=== PATIENT | female | born 1955 | race Caucasian/White ===

== ENCOUNTER → 2016-05-18 | Outpatient (CLI) | payer OTHER ==
[~2016-05-18] MED LIST: ALLE25CA; CALCIUM CITRATE; CELE50CA; ESTRACE; FURO20TA2; LUTEIN; MULTIVIT; MULTIVITAMIN; PROZ20CA; VITAMIN D50000 UNT; [UNRECOGNIZED DRUG - OTHER]
--- NOTE | 2016-05-18 10:48 | REPMRS ---
Patient History The patient states she had a clinical breast exam in No known family history of cancer. Benign excisional biopsy of the left breast, 1997. Took unspecified hormones for 7 months. Digital Woman Screen Mammo: May 18, 2016 - Exam #: [id number] Bilateral CC and MLO view(s) were taken. Technologist: Ita Crowley, Technologist Prior study comparison: February 02, 2015, digital woman screen mammo performed at [facility]. January 15, 2014, digital woman screen mammo performed at [facility]. July 23, 2012, digital woman screen mammo performed at [facility]. FINDINGS: There are scattered fibroglandular densities. There has been no change in the appearance of the mammogram from the prior studies. There is a mild amount of scattered fibroglandular density which is fairly symmetric. There is no interval development of dominant mass, architectural distortion, or clustered microcalcification suggestive of malignancy. ASSESSMENT: BI-RADS/ACR category 1 mammogram. Negative. Recommendation Routine screening mammogram in 1 year (for women over age 40). This mammogram was interpreted with the aid of an FDA-approved computer-aided dectection system. Electronically Signed By: Eric Martinez MD 05/18/16 3072
== END ==
LOC: M WHC 08:37
PROVIDERS: ATTEND Family Medicine
DX: Z12.31 Encounter for screening mammogram for malignant neoplasm of breast (principal)

== ENCOUNTER → 2016-06-28 | Outpatient (REF) | payer OTHER ==
[2016-06-28 16:36] LABS: MEAN CORPUSCULAR HEMOGLOBIN 28.9 pg (27.0-33.0); MEAN CORPUSCULAR VOLUME 87.5 fl (80.0-96.0); RED CELL DISTRIBUTION WIDTH 15.4 % (11.5-14.5); WHITE BLOOD COUNT 5.8 K/mm3 (4.0-10.0)
[2016-06-28 17:37] LABS: VITAMIN B12 LEVEL > 2000 PG/ML (247-911)
[2016-06-28 17:38] LABS: FOLATE > 24.0 NG/ML (>5.4)
[2016-06-28 17:44] LABS: ANION GAP 12 MEQ/L (8-16); BLOOD UREA NITROGEN 27 MG/DL (7-18); CALCIUM LEVEL 9.6 MG/DL (8.8-10.2); CARBON DIOXIDE LEVEL 31 MEQ/L (21-32); CHLORIDE LEVEL 82 MEQ/L (98-107); CREATININE FOR GFR 0.99 MG/DL (0.55-1.02); FERRITIN 42 NG/ML (8-252); GLOMERULAR FILTRATION RATE > 60.0 (>45); GLUCOSE, FASTING 105 MG/DL (80-110); POTASSIUM SERUM 4.2 MEQ/L (3.5-5.1); SODIUM LEVEL 125 MEQ/L (136-145)
== END ==
LOC: M SFHCCLAY 11:37
PROVIDERS: ATTEND Family Medicine
DX: R42 Dizziness and giddiness (principal)

== ENCOUNTER → 2017-03-08 | Outpatient (CLI) | payer OTHER ==
--- NOTE | 2017-03-08 14:15 | REP ---
THORACIC SPINE SERIES: THREE VIEWS. HISTORY: Injury in a fall 2 days ago, mid upper back pain. FINDINGS: There is a mild dextroconvex lower thoracic scoliotic curve. A levoconvex lumbar curve is seen. There is straightening of the normal thoracic kyphosis. Thoracic vertebral body heights are preserved. Pedicles and posterior elements are intact. There is diffuse degenerative disc disease. No fracture or collapse is seen. No paravertebral soft-tissue mass is noted. Swimmers lateral view shows degenerative disc disease in the cervical spine as well. IMPRESSION: No traumatic abnormality noted. Scoliosis and diffuse degenerative disc disease.
== END ==
LOC: M CLY 13:10
PROVIDERS: ATTEND Family Medicine
DX: M41.9 Scoliosis, unspecified (principal); M51.34 Other intervertebral disc degeneration, thoracic region

== ENCOUNTER → 2017-07-05 | Outpatient (CLI) | payer OTHER | LOC: M WHC 08:43 | DX: Z12.31 Encounter for screening mammogram for malignant neoplasm of breast (principal) ==

== ENCOUNTER → 2018-02-10 | Outpatient (REF) | payer OTHER ==
[2018-02-11 12:19] LABS: BASO % 0.7 % (0.0-1.0); EOS # 0.1 10^3/uL (0.0-0.50); EOS % 1.2 % (0.0-3.0); HEMATOCRIT 31.2 % (36.0-47.0); HEMOGLOBIN 10.2 g/dl (12.0-15.5); LYMPH # 1.3 10^3/uL (1.5-4.5); LYMPH % 22.1 % (24.0-44.0); MEAN CORPUSCULAR HEMOGLOBIN 35.3 pg (27.0-33.0); MEAN CORPUSCULAR HGB CONC 32.7 g/dl (32.0-36.5); MONO % 17.8 % (0.0-5.0); NEUTROPHILS # 3.3 10^3/uL (1.8-7.7); NEUTROPHILS % 57.2 % (36.0-66.0); PLATELET COUNT, AUTOMATED 295 10^3/uL (150-450); RED BLOOD COUNT 2.89 10^6/uL (4.00-5.40); RED CELL DISTRIBUTION WIDTH 22.5 % (11.5-14.5); WHITE BLOOD COUNT 5.8 10^3/uL (4.0-10.0)
[2018-02-11 12:34] LABS: ALBUMIN 2.8 GM/DL (3.2-5.2); ALBUMIN/GLOBULIN RATIO 0.72 (1.00-1.93); ALKALINE PHOSPHATASE 211 U/L (45-117); ALT/SGPT 54 U/L (12-78); ANION GAP 9 MEQ/L (8-16); AST/SGOT 86 U/L (7-37); BILIRUBIN,TOTAL 1.4 MG/DL (0.2-1.0); BLOOD UREA NITROGEN 13 MG/DL (7-18); CALCIUM LEVEL 8.5 MG/DL (8.8-10.2); CARBON DIOXIDE LEVEL 30 MEQ/L (21-32); CHLORIDE LEVEL 94 MEQ/L (98-107); CREATININE FOR GFR 1.03 MG/DL (0.55-1.30); GLUCOSE, FASTING 82 MG/DL (70-100); IRON (FE) 41 UG/DL (50-170); LIPASE 268 U/L (73-393); POTASSIUM SERUM 4.6 MEQ/L (3.5-5.1); SODIUM LEVEL 133 MEQ/L (136-145); TOTAL PROTEIN 6.7 GM/DL (6.4-8.2)
[2018-02-11 12:42] LABS: FOLATE > 24.0 NG/ML (>5.4); VITAMIN B12 LEVEL > 2000 PG/ML (247-911)
[2018-02-12 11:55] LABS: HEPATITIS C VIRUS ABY INDEX 0.1 INDEX (<0.8)
[2018-02-12 11:56] LABS: HEPATITIS B CORE ANTIBODY IGM NEGATIVE (NEGATIVE)
[2018-02-12 11:57] LABS: HEPATITIS A ANTIBODY IGM NEGATIVE (NEGATIVE)
[2018-02-12 14:07] LABS: HEPATITIS B SURFACE ANTIGEN NEGATIVE (NEGATIVE)
== END ==
LOC: M SFHCCLAY 13:51
DX: R94.5 Abnormal results of liver function studies (principal); D64.9 Anemia, unspecified
CPT/HCPCS: 82746

== ENCOUNTER → 2018-04-15 | Outpatient (REF) | payer OTHER ==
[2018-04-15 16:52] LABS: ALT/SGPT 36 U/L (12-78); BILIRUBIN,TOTAL 0.3 MG/DL (0.2-1.0); BLOOD UREA NITROGEN 14 MG/DL (7-18); CALCIUM LEVEL 9.6 MG/DL (8.8-10.2); CARBON DIOXIDE LEVEL 31 MEQ/L (21-32); CHLORIDE LEVEL 98 MEQ/L (98-107); CHOLESTEROL LEVEL 197 MG/DL (<200); CHOLESTEROL RISK RATIO 2.855 (<5); CREATININE FOR GFR 0.67 MG/DL (0.55-1.30); GLOMERULAR FILTRATION RATE > 60.0 (>45); GLUCOSE, FASTING 99 MG/DL (70-100); HDL CHOLESTEROL 69 MG/DL (>40); IRON (FE) 46 UG/DL (50-170); LDL CHOLESTEROL 112 MG/DL (<100); NON-HDL-C 128 MG/DL; POTASSIUM SERUM 4.4 MEQ/L (3.5-5.1); SODIUM LEVEL 136 MEQ/L (136-145); TRIGLYCERIDES LEVEL 79 MG/DL (<150)
[2018-04-15 18:16] LABS: BASO # 0.1 10^3/uL (0.0-0.2); BASO % 0.9 % (0.0-1.0); EOS # 0.2 10^3/uL (0.0-0.50); EOS % 3.2 % (0.0-3.0); HEMATOCRIT 37.4 % (36.0-47.0); HEMOGLOBIN 12.1 g/dl (12.0-15.5); LYMPH # 2.6 10^3/uL (1.5-4.5); LYMPH % 45.3 % (24.0-44.0); MEAN CORPUSCULAR HEMOGLOBIN 31.8 pg (27.0-33.0); MEAN CORPUSCULAR HGB CONC 32.4 g/dl (32.0-36.5); MEAN CORPUSCULAR VOLUME 98.2 fl (80.0-96.0); MONO # 0.5 10^3/uL (0.0-0.8); MONO % 8.4 % (0.0-5.0); NEUTROPHILS # 2.4 10^3/uL (1.8-7.7); PLATELET COUNT, AUTOMATED 218 10^3/uL (150-450); RED BLOOD COUNT 3.81 10^6/uL (4.00-5.40); WHITE BLOOD COUNT 5.7 10^3/uL (4.0-10.0)
== END ==
LOC: M SFHCCLAY 10:53
PROVIDERS: ATTEND Family Medicine
DX: D64.9 Anemia, unspecified (principal); E78.2 Mixed hyperlipidemia

== ENCOUNTER → 2018-04-15 | Outpatient (CLI) | payer OTHER ==
--- NOTE | 2018-04-15 11:35 | REP ---
Clinical: Right hip pain. Technique: Neutral and frog lateral views of the right hip. Comparison: 10/15/2011. Findings: The patient is status post right hip arthroplasty with normal appearance and positioning to the femoral and acetabular components. Underlying osteopenia and arthritic changes of the residual visualized pelvis and proximal femur remain stable. Impression: Evidence for prior hip replacement. Stable appearance to the residual osseous structures as compared to 2011 the. Electronically Signed by Oscar Castillo MD 04/15/2018 11:27 A
== END ==
LOC: M CLY 10:59
PROVIDERS: ATTEND Family Medicine
DX: M25.551 Pain in right hip (principal); Z96.641 Presence of right artificial hip joint

== ENCOUNTER → 2018-06-26 | Outpatient (CLI) | payer OTHER ==
--- NOTE | 2018-06-27 01:10 | REP ---
Clinical: Right shoulder pain. Technique: Internal rotation, external rotation, and Y view of the right shoulder. Findings: Age-related osteopenia appreciated. Cortical irregularity and subtle spurring at the acromioclavicular joint is appreciated along with subtle cortical irregularity along the ossified glenoid rim. Subacromial space is normal. No periarticular calcifications are identified. No acute fracture or dislocation noted. Impression: Osteopenia and mild arthritic degenerative changes.
== END ==
LOC: M CLY 14:47
PROVIDERS: ATTEND Nurse Practitioner Family
DX: M25.511 Pain in right shoulder (principal); M19.011 Primary osteoarthritis, right shoulder; M85.811 Other specified disorders of bone density and structure, right shoulder

== ENCOUNTER → 2018-12-22 | Outpatient (CLI) | payer OTHER ==
--- NOTE | 2018-12-22 11:37 | REPMRS ---
Patient History The patient states she had a clinical breast exam in 12/2018. No known family history of cancer. Benign excisional biopsy of the left breast, 1997. Took unspecified hormones for 7 months. 3D TOMOSYNTHESIS WAS PERFORMED. [facility]%. Digital Woman Screen Mammo: December 22, 2018 - Exam #: [id number] Bilateral CC and MLO view(s) were taken. Technologist: Yari Nicole, Technologist Prior study comparison: July 05, 2017, digital woman screen mammo performed at [facility]. May 18, 2016, digital woman screen mammo performed at [facility]. FINDINGS: There are scattered fibroglandular densities. There has been no change in the appearance of the mammogram from the prior studies. There is a mild amount of residual fibroglandular tissue which is fairly symmetric. There is no interval development of dominant mass, architectural distortion, or clustered microcalcification suggestive of malignancy. Assessment: BI-RADS/ACR category 1 mammogram. Negative Mammogram. Recommendation Routine screening mammogram in 1 year (for women over age 40). This mammogram was interpreted with the aid of an FDA-approved computer-aided dectection system. Electronically Signed By: Kvng Aguilar MD 12/22/18 [id number]
== END ==
LOC: M WHC 10:20
PROVIDERS: ATTEND Nurse Practitioner Women's Health
DX: Z12.31 Encounter for screening mammogram for malignant neoplasm of breast (principal)

== ENCOUNTER → 2019-03-30 | Outpatient (REF) | payer OTHER ==
[2019-03-30 16:49] LABS: BLOOD UREA NITROGEN 17 MG/DL (7-18); CALCIUM LEVEL 9.7 MG/DL (8.8-10.2); CARBON DIOXIDE LEVEL 26 MEQ/L (21-32); CHLORIDE LEVEL 100 MEQ/L (98-107); CHOLESTEROL LEVEL 191 MG/DL (<200); CHOLESTEROL RISK RATIO 1.854 (<5); CREATININE FOR GFR 0.72 MG/DL (0.55-1.30); GLOMERULAR FILTRATION RATE > 60.0 (>45); GLUCOSE, FASTING 111 MG/DL (70-100); HDL CHOLESTEROL 103 MG/DL (>40); LDL CHOLESTEROL 69 MG/DL (<100); NON-HDL-C 88 MG/DL; POTASSIUM SERUM 4.6 MEQ/L (3.5-5.1); SODIUM LEVEL 135 MEQ/L (136-145); TRIGLYCERIDES LEVEL 97 MG/DL (<150)
== END ==
LOC: M SFHCCLAY 11:06
PROVIDERS: ATTEND Family Medicine
DX: E78.2 Mixed hyperlipidemia (principal); I10 Essential (primary) hypertension

== ENCOUNTER → 2019-04-14 | Outpatient (REF) | payer OTHER ==
[2019-04-14 18:39] LABS: HEMATOCRIT 40.3 % (36.0-47.0); HEMOGLOBIN 13.1 g/dl (12.0-15.5); MEAN CORPUSCULAR HGB CONC 32.5 g/dl (32.0-36.5); MEAN CORPUSCULAR VOLUME 101.5 fl (80.0-96.0); PLATELET COUNT, AUTOMATED 203 10^3/uL (150-450); RED BLOOD COUNT 3.97 10^6/uL (4.00-5.40); WHITE BLOOD COUNT 5.5 10^3/uL (4.0-10.0)
[2019-04-14 18:40] LABS: ALBUMIN 3.9 GM/DL (3.2-5.2); ALT/SGPT 105 U/L (12-78); BILIRUBIN,TOTAL 0.7 MG/DL (0.2-1.0); BLOOD UREA NITROGEN 31 MG/DL (7-18); CALCIUM LEVEL 8.9 MG/DL (8.8-10.2); CARBON DIOXIDE LEVEL 30 MEQ/L (21-32); CHLORIDE LEVEL 100 MEQ/L (98-107); GLOMERULAR FILTRATION RATE > 60.0 (>45); GLUCOSE, FASTING 93 MG/DL (70-100); IRON (FE) 146 UG/DL (50-170); POTASSIUM SERUM 4.1 MEQ/L (3.5-5.1); SODIUM LEVEL 136 MEQ/L (136-145); TOTAL PROTEIN 7.3 GM/DL (6.4-8.2)
[2019-04-14 18:48] LABS: VITAMIN B12 LEVEL > 2000 PG/ML (247-911)
[2019-04-14 19:03] LABS: HEMOGLOBIN A1c 5.6 %
[2019-04-14 19:13] LABS: TOTAL 25(OH) VITAMIN D 39.2 NG/ML (30.0-100.0)
[2019-04-15 02:38] LABS: HEMATOCRIT 40.3 % (36.0-47.0)
== END ==
LOC: M SFHCCLAY 09:54
PROVIDERS: ATTEND Family Medicine
DX: Z98.84 Bariatric surgery status (principal); R73.01 Impaired fasting glucose

== ENCOUNTER → 2019-05-14 | Outpatient (CLI) | payer OTHER ==
--- NOTE | 2019-05-14 09:52 | REP ---
Left hip two views: There is no fracture or dislocation. There is mild joint space narrowing. There are no calcifications or foreign bodies. The Impression: Mild joint space narrowing compatible with mild osteoarthritis. If symptoms persist or worsen, consider MRI. Electronically Signed by Kvng Polanco MD 05/14/2019 09:42 A
== END ==
LOC: M CLY 09:22
PROVIDERS: ATTEND Family Medicine
DX: M25.552 Pain in left hip (principal)

== ENCOUNTER → 2019-10-08 | Outpatient (CLI) | payer OTHER | LOC: M CLY 11:46 | PROVIDERS: ATTEND Family Medicine | DX: R91.8 Other nonspecific abnormal finding of lung field (principal); R06.02 Shortness of breath; M41.9 Scoliosis, unspecified ==

== ENCOUNTER 2019-10-10 11:51 | Observation (INO) | payer OTHER ==
[2019-10-10] MEDS ORDERED: ONDANSETRON 4MG/2ML VIAL ONE (13:31)
[2019-10-10] MEDS ORDERED: LORazepam 2 MG/ML VIAL ONE (14:47)
[2019-10-10] MEDS ORDERED: OXAZEPAM 15 MG CAP ONE (17:11)
[2019-10-10] MEDS ORDERED: IPRATROPIUM 0.5MG/ALBUTEROL 2.5MG INH SOL UD 3ML (DUONEB) ONE (17:11)
[2019-10-10] MEDS ORDERED: ISOVUE-370 76% 100ML VIAL ONE (17:41)
[2019-10-10] MEDS ORDERED: LevoFLOXacin 750MG/150ML IV BAG (J1956 PER 250MG) ONE (19:29)
[2019-10-10] MEDS ORDERED: ACETAMINOPHEN 325 MG TAB ONE (20:55)
[2019-10-10] MEDS ORDERED: LORazepam 1 MG TAB ONE (22:43)
[2019-10-11] MEDS ORDERED: LORazepam 1 MG TAB ONE (01:35)
[2019-10-11] MEDS ORDERED: cefTRIAXone SOD 1GM VIAL (J0696 PER 250MG) ONE (07:56)
[2019-10-11] MEDS ORDERED: ENOXAPARIN 40MG/0.4ML SYRINGE (J1650 PER 10MG) ONE ×2 (08:40)
[2019-10-11] MEDS ORDERED: hydroCHLOROthiazide 12.5 MG CAPSULE ONE ×2 (08:40)
[2019-10-11] MEDS ORDERED: AZITHROMYCIN INJ 500MG VIAL (J0456 PER 500MG) ONE ×2 (08:40)
[2019-10-11] MEDS ORDERED: GABAPENTIN 400 MG CAP ONE ×4 (08:40→22:36)
[2019-10-11] MEDS ORDERED: LORazepam 2 MG TAB ONE ×3 (08:40→13:44)
[2019-10-11] MEDS ORDERED: ESCITALOPRAM OXALATE 10 MG TAB (LEXAPRO) ONE ×2 (08:40)
[2019-10-11] MEDS ORDERED: LOSARTAN 50MG TABLET ONE ×2 (08:40)
[2019-10-11] MEDS ORDERED: BACLOFEN 10 MG TAB ONE ×4 (08:40→22:36)
[2019-10-11] MEDS ORDERED: amLODIPine 10 MG TAB ONE (13:29)
[2019-10-11] MEDS ORDERED: LOPERAMIDE 2 MG CAPLET ONE (16:47)
[2019-10-11] MEDS ORDERED: traZODone 50 MG TAB ONE (22:36)
[2019-10-12] MEDS ORDERED: MVI -ADULT INJECTION 10ML VIAL ONE (02:00)
[2019-10-12] MEDS ORDERED: FOLIC ACID 1MG/0.2ML VIAL ONE (02:00)
[2019-10-12] MEDS ORDERED: SODIUM CHLORIDE 0.9% 1000ML ONE (02:00)
[2019-10-12] MEDS ORDERED: THIAMINE 200MG/2ML VIAL (J3411 PER 100MG) ONE (02:00)
[2019-10-12] MEDS ORDERED: ACETAMINOPHEN TAB 650MG DOSE (2X325MG) ONE (05:43)
[2019-10-12] MEDS ORDERED: LANSOPRAZOLE SUSPENSION 30 MG/10 ML ORAL SYRINGE (FIRST-LANSOPRAZOLE) ONE (09:00)
[2019-10-12] MEDS ORDERED: cefTRIAXone SOD 1GM VIAL (J0696 PER 250MG) ONE (09:05)
[2019-10-12] MEDS ORDERED: GABAPENTIN 400 MG CAP ONE ×2 (09:05→16:18)
[2019-10-12] MEDS ORDERED: BACLOFEN 10 MG TAB ONE ×3 (09:05→16:18)
[2019-10-12] MEDS ORDERED: amLODIPine 10 MG TAB ONE (09:05)
[2019-10-12] MEDS ORDERED: hydroCHLOROthiazide 12.5 MG CAPSULE ONE (09:05)
[2019-10-12] MEDS ORDERED: LOSARTAN 50MG TABLET ONE (09:06)
[2019-10-12] MEDS ORDERED: ENOXAPARIN 40MG/0.4ML SYRINGE (J1650 PER 10MG) ONE (09:06)
[2019-10-12] MEDS ORDERED: ESCITALOPRAM OXALATE 10 MG TAB (LEXAPRO) ONE (09:06)
[2019-10-12] MEDS ORDERED: AZITHROMYCIN INJ 500MG VIAL (J0456 PER 500MG) ONE (10:18)
[2019-10-12] MEDS ORDERED: LORazepam 2 MG TAB ONE ×2 (11:15→16:18)
[2019-10-12] MEDS ORDERED: [UNRECOGNIZED DRUG - REMARK] XX ONE (14:57)
[2019-11-06 11:37] LABS: INR 1.07; PROTHROMBIN TIME 14.1 SECONDS (11.8-14.0)
[2019-11-06 14:48] LABS: BASO # 0.1 10^3/uL (0.0-0.2); BASO % 2.1 % (0.0-1.0); EOS # 0.1 10^3/uL (0.0-0.5); EOS % 1.3 % (0.0-3.0); HEMATOCRIT 39.4 % (36.0-47.0); HEMOGLOBIN 13.2 g/dl (12.0-15.5); LYMPH # 1.1 10^3/uL (1.5-5.0); MEAN CORPUSCULAR HEMOGLOBIN 32.8 pg (27.0-33.0); MEAN CORPUSCULAR HGB CONC 33.5 g/dl (32.0-36.5); MEAN CORPUSCULAR VOLUME 97.8 fl (80.0-96.0); MONO # 0.2 10^3/uL (0.0-0.8); NEUTROPHILS # 2.4 10^3/uL (1.5-8.5); NEUTROPHILS % 62.3 % (36.0-66.0); PLATELET COUNT, AUTOMATED 216 10^3/uL (150-450); RED BLOOD COUNT 4.03 10^6/uL (4.00-5.40); WHITE BLOOD COUNT 3.8 10^3/uL (4.0-10.0)
[2019-11-06 17:28] LABS: BASO % 0.1 % (0.0-1.0); EOS % 0.1 % (0.0-3.0); HEMOGLOBIN 11.9 g/dl (12.0-15.5); LYMPH # 1.1 10^3/uL (1.5-5.0); LYMPH % 15.4 % (24.0-44.0); MONO # 0.7 10^3/uL (0.0-0.8); MONO % 9.6 % (0.0-5.0); NEUTROPHILS # 5.2 10^3/uL (1.5-8.5); NEUTROPHILS % 74.7 % (36.0-66.0); PLATELET COUNT, AUTOMATED 148 10^3/uL (150-450); RED BLOOD COUNT 3.61 10^6/uL (4.00-5.40)
[2019-11-17 07:49] LABS: ALT/SGPT 80 IU/L (0-32); BILIRUBIN,DIRECT 0.2 MG/DL (0.0-0.2); BILIRUBIN,TOTAL 0.3 MG/DL (0.2-1.0); BLOOD UREA NITROGEN 17 MG/DL (7-18); CALCIUM LEVEL 8.9 MG/DL (8.8-10.2); CARBON DIOXIDE LEVEL 19 mmol/L (20-29); CHLORIDE LEVEL 103 MEQ/L (98-107); CPK CREATINE PHOSPHOKINASE 94 U/L (26-192); CREATININE FOR GFR 0.64 MG/DL (0.55-1.30); GLOMERULAR FILTRATION RATE > 60.0 (>45); GLUCOSE, FASTING 84 MG/DL (70-100); MB/CK RELATIVE INDEX 2.12 (< OR =4); POTASSIUM SERUM 4.3 MEQ/L (3.5-5.1); SODIUM LEVEL 141 MEQ/L (136-145)
[2019-11-17 07:50] LABS: ALBUMIN 3.8 GM/DL (3.2-5.2); NT-PRO BNP 47 PG/ML (<125); TOTAL PROTEIN 7.1 GM/DL (6.4-8.2); TROPONIN I < 0.02 NG/ML (< 0.10)
[2019-11-17 08:02] LABS: ABG BASE EXCESS -7.4 (-2.0-2.0); ABG HCO3 17.4 MEQ/L (22.0-26.0); ABG O2 SATURATION 96.5 % (95.0-99.0); ABG PARTIAL PRESSURE CO2 33.5 mmHg (35.0-45.0); ABG PARTIAL PRESSURE O2 101.5 mmHg (75.0-100.0); ABG STANDARD HCO3 18.5 MEQ/L (22.0-26.0); ABG TOTAL CO2 18.5 MEQ/L (23.0-31.0); ABG pH (ARTERIAL) 7.334 UNITS (7.350-7.450)
[2019-11-18 15:07] LABS: HEMATOCRIT 39.2 % (36.0-47.0); HEMOGLOBIN 13.3 g/dl (12.0-15.5); MEAN CORPUSCULAR HEMOGLOBIN 32.5 pg (27.0-33.0); MEAN CORPUSCULAR HGB CONC 33.9 g/dl (32.0-36.5); MEAN CORPUSCULAR VOLUME 95.8 fl (80.0-96.0); PLATELET COUNT, AUTOMATED 129 10^3/uL (150-450); RED BLOOD COUNT 4.09 10^6/uL (4.00-5.40); WHITE BLOOD COUNT 5.7 10^3/uL (4.0-10.0)
--- NOTE | 2019-12-04 07:43 | ECGEPIP ---
SINUS TACHYCARDIA WITH ONE DEGREE AVB SEE SCANNED DOWNTIME REPORT MTDD
== END 2019-10-12 15:00 | disposition home or self-care (01) ==
LOC: M ED 11:51 → M 4MAIN 11:52 → UNDOADMIN 18:30 → M 4MAIN 18:30 → UNDODISIN 10-12 15:00
PROVIDERS: ADMIT Internal Medicine; ATTEND Internal Medicine
DX: J18.9 Pneumonia, unspecified organism (principal); I10 Essential (primary) hypertension; R09.02 Hypoxemia; F10.10 Alcohol abuse, uncomplicated; M54.5 Low back pain; M19.90 Unspecified osteoarthritis, unspecified site; Z96.641 Presence of right artificial hip joint; Z98.84 Bariatric surgery status; Z20.828 Contact with and (suspected) exposure to other viral communicable diseases; Z87.891 Personal history of nicotine dependence
CPT/HCPCS: 71046; 71275; 80048; 80076; 82550; 82553; 82803; 83880; 85025; 85027; 85610; 85730; 87486; 87507; 87581; 87633; 87798; 93005; 96374; 96375; 99284; J0456; J0696; J1650; J1956; J2060; J2405; J3411; Q9967

== ENCOUNTER → 2020-01-04 | Outpatient (CLI) | payer OTHER ==
--- NOTE | 2020-01-04 13:14 | REP ---
INDICATION: DISORDERS OF DIAPHRAGM. COMPARISON: None. TECHNIQUE: REAL-TIME FLUOROSCOPIC EVALUATION OF THE DIAPHRAGMS IS PERFORMED DURING DEEP INSPIRATION EXPIRATION. FINDINGS: BOTH HEMIDIAPHRAGMS MOVE IN AN APPROPRIATE DIRECTION WITH DEEP INSPIRATION AND EXPIRATION. THE LEFT HEMIDIAPHRAGM A DEMONSTRATES APPROPRIATE EXCURSION DISTANCE, APPROXIMATELY 2 RIB INTERSPACES. HOWEVER, THE RIGHT HEMIDIAPHRAGM DEMONSTRATES SIGNIFICANT DECREASE IN EXCURSION DISTANCE, APPROXIMATELY 1 RIB INTERSPACE. THERE IS NO PARADOXICAL MOTION. IMPRESSION: BOTH HEMIDIAPHRAGMS DEMONSTRATE APPROPRIATE DIRECTION OF MOTION WITH INSPIRATION AND EXPIRATION, HOWEVER, THERE IS SIGNIFICANTLY DECREASED EXCURSION OF THE RIGHT HEMIDIAPHRAGM. FLUOROSCOPY TIME IS 0.4 MINUTES. <Electronically signed by Kvng Aguilar > 01/04/20 [id number]
== END ==
LOC: M RAD 12:13
PROVIDERS: ATTEND Internal Medicine Pulmonary Disease
DX: J98.6 Disorders of diaphragm (principal)

== ENCOUNTER → 2020-01-21 | Outpatient (CLI) | payer OTHER ==
--- NOTE | 2020-01-25 12:06 | ECHO ---
DATE OF PROCEDURE: 01/21/2020 Age: 64 Gender: Female Height: 160 cm Weight: 78 kg REFERRING PHYSICIAN: Maryann Martinez MD INDICATION: Dyspnea. MEASUREMENTS: IVS 0.9 cm LV 4.7 cm LVPW 0.9 cm LA 3.1 cm Aorta 3.7 cm RV 3.7 cm IVC 1.5 cm DOPPLER MEASUREMENT Mitral E wave velocity 50 Mitral A wave 82 E prime septal 4.8 E prime lateral 8.1 FINDINGS: This study is of acceptable technical quality. The patient is in sinus rhythm. Normal left ventricular (LV) size with normal left ventricular (LV) systolic function and estimated left ventricular ejection fraction (LVEF) 65% to 70%. No segmental wall motion abnormalities are appreciated. The right ventricle was relatively poorly seen, but appears grossly normal. Most atria appear normal. The aortic valve is mildly sclerotic, but has 3 cusps and preserved mobility. Mitral and tricuspid valves appear normal. Pulmonic valve was not well seen. No pericardial effusion is noted. Inferior vena cava is of normal size and normally collapses with inspiration indicative of normal central venous pressure. Aortic root, aortic arch, and visualized segment of abdominal aorta all appear normal. Doppler interrogation reveals competent aortic valve. There is also competent mitral valve. Mild tricuspid insufficiency is noted. Calculated pulmonary artery pressure is in the low 30s corresponding to borderline pulmonary hypertension. Pulmonic valve was not well seen. Mitral inflow pattern on tissue Doppler imaging of mitral annulus showing grade 1 diastolic dysfunction. CONCLUSIONS: 1. Study is of acceptable technical quality, underlying sinus rhythm. 2. Normal left ventricular (LV) size and systolic function, grade 1 diastolic dysfunction. 3. Aortic sclerosis, but no stenosis or insufficiency. 4. Normal central venous pressure and borderline pulmonary hypertension. COMMENTS: No obvious finding to explain dyspnea. MTDD
== END ==
LOC: M CARPUL 09:10
PROVIDERS: ATTEND Internal Medicine Pulmonary Disease
DX: R06.00 Dyspnea, unspecified (principal)

== ENCOUNTER → 2020-01-28 | Outpatient (CLI) | payer OTHER ==
[~2020-01-28] MED LIST changes: +METHACHOLINE KIT (J7674) INH ONE
--- NOTE | 2020-01-28 13:41 | PFTRPT ---
Site: [facility], [address] [place], [address] ID: [id number] Name: GISELA KOWALSKI Visit Date: 01/28/2020 Second ID: [id number] Referring Doctor: Maryann Martinez MD Reviewing Doctor: Magan Kelly MD Trommel Tender: Travis MCCORMICK RRT Age: 64 : 1955 Sex: Female Race: Height: 63.50 Inches Weight: 174.00 Lbs BSA: 1.83 Order IDs: [id number] Requested Test(s): <RESP-PFT.METH CHAL> Diagnosis: R06.00 puffs of albuterol for post bronchodilator. Review Status: Not Reviewed Pre-Bronch Post-Bronch Pred Actual %Pred Actual %Chng SPIROMETRY FVC (L) 3.13 1.91 60 1.80 -5 FEV1 (L) 2.40 1.57 65 1.50 -4 FEV1/FVC (%) 77 82 106 83 1 FEF 25% (L/sec) 4.83 4.64 96 4.92 5 FEF 50% (L/sec) 3.52 2.60 73 2.25 -13 FEF 75% (L/sec) 1.12 0.53 47 0.40 -24 FEF 25-75% (L/sec) 2.15 1.63 75 1.28 -21 FEF Max (L/sec) 5.99 4.90 81 5.14 4 FIVC (L) 1.97 2.02 2 FIF 50% (L/sec) 3.46 2.58 74 2.55 FIF Max (L/sec) 2.59 3.03 17 Expiratory Time (sec) 6.76 6.61 -2 Back Extrap Vol (L) 0.07 0.08 2 Time To FEFmax (sec) 0.081 0.074 -8
== END ==
LOC: M CARPUL 12:30
PROVIDERS: ATTEND Internal Medicine Pulmonary Disease
DX: R06.00 Dyspnea, unspecified (principal)
CPT/HCPCS: 94070; 95070; J7674

== ENCOUNTER → 2020-02-18 | Outpatient (CLI) | payer OTHER ==
[~2020-02-18] MED LIST changes: -METHACHOLINE KIT (J7674) INH ONE
--- NOTE | 2020-02-18 16:09 | REPMRS ---
Patient History The patient states she had a clinical breast exam in 03/06 Patient has history of cervical cancer at age 29. No known family history of cancer. Benign excisional biopsy of the left breast, 1997. Took unspecified hormones for 7 months. Digital Woman Screen Mammo: February 18, 2020 - Exam #: [id number] Bilateral CC and MLO view(s) were taken. Technologist: Yari Nicole, Technologist Prior study comparison: December 22, 2018, bilateral digital woman screen mammo performed at [facility]. July 05, 2017, digital woman screen mammo performed at [facility]. May 18, 2016, digital woman screen mammo performed at [facility]. FINDINGS: The breast tissue is almost entirely fat. The Volpara volumetric breast density category is: A. There has been no change in the appearance of the mammogram from the prior studies. There is no interval development of dominant mass, architectural distortion, or grouped microcalcification typical of malignancy. 3-D tomosynthesis shows no additional findings. Assessment: BI-RADS/ACR category 1 mammogram. Negative Mammogram. Recommendation Routine screening mammogram of both breasts in 1 year (for women over age 40). This patient's [facility] Lifetime Breast Cancer RIsk is estimated at 6.1 %. This mammogram was interpreted with the aid of an FDA-approved computer-aided dectection system. Electronically Signed By: Eric Martinez MD 02/18/20 1689
--- NOTE | 2020-02-18 16:37 | DEXAMM ---
INDICATION: Z13.820 SCREENING FOR OSTEOPOROSIS,Z78.0 POSTMENOPAUSAL STAT. Status post right hip arthroplasty. COMPARISON: Comparison bone densitometry exam is are dated July 11, 2011 and August 24, 2005.. TECHNIQUE: Bone density was measured using dual-energy x-ray absorptionmetry (DEXA). FINDINGS: AP SPINE L1-L4 BMD 1.376 g/cm2 Young Adult T-Score 1.5 Age Matched Z-Score 3.0. LT FEMUR, TOTAL BMD 0.824 g/cm2 Young Adult T-Score -1.5 Age Matched Z-Score -0.3. LT NECK BMD 0.727 g/cm2 Young Adult T-Score -2.2 Age Matched Z-Score -0.8. IMPRESSION: There is normal bone densitometry of the spine. A levoconvex lumbar scoliosis and degenerative spondylosis are visible. There is low bone density of the left hip. The density of the spine has increased 4.6% since the initial exam on August 24, 2005. The density of the spine increased 3.5% since most recent exam on July 11, 2011. The density of the left hip has decreased 30.1% since initial exam on August 24, 2005. The density of the left hip has decreased 21.1% since most recent exam on July 11, 2011. FOLLOW-UP: Recommendation for the next bone density exam: 2 years. <Electronically signed by Eric Martinez > 02/18/20 [id number]
== END ==
LOC: M WHC 13:38
PROVIDERS: ATTEND Nurse Practitioner Women's Health
DX: Z12.31 Encounter for screening mammogram for malignant neoplasm of breast (principal); Z13.820 Encounter for screening for osteoporosis

== ENCOUNTER → 2020-04-29 | Outpatient (REF) | payer OTHER ==
[2020-04-29 16:01] LABS: CALCIUM LEVEL 9.4 MG/DL (8.8-10.2); CREATININE FOR GFR 1.88 MG/DL (0.55-1.30); GLOMERULAR FILTRATION RATE 28.7 (>45); POTASSIUM SERUM 4.1 MEQ/L (3.5-5.1)
== END ==
LOC: M LABDRAWC 15:32
PROVIDERS: ATTEND Internal Medicine Pulmonary Disease
DX: R06.00 Dyspnea, unspecified (principal)

== ENCOUNTER → 2020-05-19 | Outpatient (CLI) | payer OTHER ==
--- NOTE | 2020-05-19 08:18 | REP ---
INDICATION: PULMONARY HYPERTENSION, UNSPECIFIED COMPARISON: 10/10/2019 TECHNIQUE: PA and lateral. FINDINGS: Visualized mediastinum and cardiac silhouette appear normal and stable. Chronic elevation to the right hemidiaphragm with associated right pleuroparenchymal changes appear similar to prior examination although subtle acute right basilar process cannot be excluded. Left hemithorax and aerated right lung appear normal. IMPRESSION: 1. Stable chronic changes. 2. Cannot exclude subtle superimposed right basilar process. <Electronically signed by Oscar Castillo > 05/19/20 0802
--- NOTE | 2020-05-19 09:43 | REP ---
INDICATION: PULMONARY HTN UNSPECIFIED. COMPARISON: Chest radiograph 05/19/2020. TECHNIQUE/RADIOTRACER AND DOSE: Following the intravenous administration of 5.5 mCi technetium 99 M tagged MAA and the inhalation of 1.0 mCi technetium 99 M DTPA aerosol, multiple images of the lung jolly are obtained in various projections. FINDINGS: There is significant elevation of the right hemidiaphragm. Small to moderate matching ventilation and perfusion defect is seen in the posterior right lower lobe. I see no areas of V/Q mismatch. IMPRESSION: Low probability of pulmonary embolism. <Electronically signed by Kvng Aguilar > 05/19/20 0940
== END ==
LOC: M RAD 07:02
PROVIDERS: ATTEND Internal Medicine Pulmonary Disease
DX: I27.20 Pulmonary hypertension, unspecified (principal)
CPT/HCPCS: 71046; 78582; A9540; A9567

== ENCOUNTER → 2020-07-08 | Outpatient (REF) | payer OTHER ==
[2020-07-08 12:10] LABS: HEMATOCRIT 39.2 % (36.0-47.0); HEMOGLOBIN 12.4 g/dl (12.0-15.5); MEAN CORPUSCULAR HEMOGLOBIN 31.9 pg (27.0-33.0); MEAN CORPUSCULAR HGB CONC 31.6 g/dl (32.0-36.5); MEAN CORPUSCULAR VOLUME 100.8 fl (80.0-96.0); PLATELET COUNT, AUTOMATED 257 10^3/uL (150-450); RED BLOOD COUNT 3.89 10^6/uL (4.00-5.40); WHITE BLOOD COUNT 6.5 10^3/uL (4.0-10.0)
[2020-07-08 12:42] LABS: ALBUMIN 3.9 GM/DL (3.2-5.2); ALT/SGPT 46 U/L (12-78); BILIRUBIN,DIRECT 0.1 MG/DL (0.0-0.2); BILIRUBIN,TOTAL 0.3 MG/DL (0.2-1.0); BLOOD UREA NITROGEN 15 MG/DL (7-18); CALCIUM LEVEL 9.7 MG/DL (8.8-10.2); CARBON DIOXIDE LEVEL 28 MEQ/L (21-32); CHLORIDE LEVEL 100 MEQ/L (98-107); CREATININE FOR GFR 0.62 MG/DL (0.55-1.30); GLOMERULAR FILTRATION RATE > 60.0 (>45); GLUCOSE, FASTING 98 MG/DL (70-100); POTASSIUM SERUM 4.3 MEQ/L (3.5-5.1); SODIUM LEVEL 133 MEQ/L (136-145); TOTAL PROTEIN 7.2 GM/DL (6.4-8.2)
== END ==
LOC: M LABDRAWC 11:41
PROVIDERS: ATTEND Podiatrist Foot & Ankle Surgery
DX: B35.1 Tinea unguium (principal); Z79.899 Other long term (current) drug therapy

== ENCOUNTER → 2020-08-08 | Outpatient (CLI) | payer OTHER ==
--- NOTE | 2020-08-09 11:45 | SLEEPCENT ---
NOCTURNAL POLYSOMNOGRAPHY DATE: 08/08/2020 ORDERED BY: Maryann Martinez MD Nocturnal polysomnography was performed for evaluation of sleep physiology in this patient with a history of nonrestorative sleep, morning headaches, and comorbidities of acid reflux disease, hypertension, and obstructive lung disease. 7 hours and 50 minutes of data were reviewed. There were 408.5 minutes of sleep identified. Sleep latency was mildly prolonged at 21.5 minutes. REM latency was normal at 124 minutes. Sleep architecture was fair with some fragmentation and early childhood education instructor arousal. There were two REM cycles noted. Overall sleep efficiency was 87.8%. The electrocardiogram showed a sinus rhythm with an average heart rate of 68 beats per minute; rate range 58 to 100. EEG showed reasonably normal waveforms for wake and sleep. There were 49 respiratory events identified of 10 seconds in duration or greater for an apnea-hypopnea index of 7.2. The events were primarily obstructive, but 17 mixed and central apneas were also noted. The vents were not exclusive stage nor body posture. Snoring was noted over much of the test and respiratory-related arousals. When arousals from snoring and obstructive events were included occurred 2.1 times per hour. There was significant limb activity in the EMG leads with one train of 30 events. Limb movement arousal index only 2.1. IMPRESSION: Obstructive sleep apnea syndrome (G47.33), apnea-hypopnea index 7.2. RECOMMENDATION: Given this patient's symptoms and comorbidities, referral [facility] to [facility] for [facility] is recommended. In the interim, alcohol and sedative avoidance should be practiced and caution exercised during the operation of motor vehicles.
== END ==
LOC: M SLEEP 20:00
PROVIDERS: ATTEND Internal Medicine Pulmonary Disease
DX: G47.33 Obstructive sleep apnea (adult) (pediatric) (principal)

== ENCOUNTER → 2020-08-31 | Outpatient (REF) | payer OTHER ==
[2020-08-31 11:50] LABS: HEMATOCRIT 40.1 % (36.0-47.0); HEMOGLOBIN 12.6 g/dl (12.0-15.5); MEAN CORPUSCULAR HEMOGLOBIN 30.9 pg (27.0-33.0); MEAN CORPUSCULAR HGB CONC 31.4 g/dl (32.0-36.5); MEAN CORPUSCULAR VOLUME 98.3 fl (80.0-96.0); PLATELET COUNT, AUTOMATED 306 10^3/uL (150-450); RED BLOOD COUNT 4.08 10^6/uL (4.00-5.40); WHITE BLOOD COUNT 5.5 10^3/uL (4.0-10.0)
[2020-08-31 11:52] LABS: HEMATOCRIT 40.1 % (36.0-47.0)
[2020-08-31 12:26] LABS: HEMOGLOBIN A1c 5.8 %
[2020-08-31 12:36] LABS: ALT/SGPT 42 U/L (12-78); BILIRUBIN,TOTAL 0.4 MG/DL (0.2-1.0); BLOOD UREA NITROGEN 15 MG/DL (7-18); CALCIUM LEVEL 9.5 MG/DL (8.8-10.2); CARBON DIOXIDE LEVEL 30 MEQ/L (21-32); CHLORIDE LEVEL 100 MEQ/L (98-107); CHOLESTEROL LEVEL 205 MG/DL (<200); GLOMERULAR FILTRATION RATE > 60.0 (>45); GLUCOSE, FASTING 100 MG/DL (70-100); HDL CHOLESTEROL 82 MG/DL (>40); IRON (FE) 58 UG/DL (50-170); LDL CHOLESTEROL 108 MG/DL (<100); NON-HDL-C 123 MG/DL; PERCENT SATURATION 12.3 % (13.2-45.0); POTASSIUM SERUM 4.2 MEQ/L (3.5-5.1); SODIUM LEVEL 134 MEQ/L (136-145); TOTAL IRON BINDING CAPACITY 470 UG/DL (250-450); TOTAL PROTEIN 7.1 GM/DL (6.4-8.2); TRIGLYCERIDES LEVEL 73 MG/DL (<150); VITAMIN B12 LEVEL > 2000 PG/ML (247-911)
== END ==
LOC: M SFHCCLAY 07:21
PROVIDERS: ATTEND Family Medicine
DX: Z00.00 Encounter for general adult medical examination without abnormal findings (principal); Z98.84 Bariatric surgery status

== ENCOUNTER → 2020-10-07 | Outpatient (CLI) | payer OTHER ==
--- NOTE | 2020-10-07 13:09 | REP ---
INDICATION: RT SHOULDER PAIN ? RCT. COMPARISON: None. TECHNIQUE: Coronal oblique T1, T2 fat sat, sagittal oblique T2 fat sat, axial T2 fat sat, gradient echo. FINDINGS: Rotator cuff: There is moderate diffuse tendinopathy/tendinitis of the supraspinatus and infraspinatus tendons. There is a partial full-thickness tear of the supraspinatus tendon superior to the humeral head at 12 o'clock. There is a partial tear of the infraspinatus tendon. There is mild tendinopathy/tendinitis of the subscapularis tendon. Acromioclavicular joint: There are moderate hypertrophic degenerative changes of the acromioclavicular joint. Acromion: Type 2 Biceps Tendon: Proximal biceps tendon is torn. Hill Sach's deformity: None. Deltoid muscle: No abnormal signal. Biceps labral complex: Biceps labral complex is torn. Labrum: There is a diffuse SLAP tear. Cartilage: There is moderate diffuse chondromalacia at the glenohumeral joint. Bone marrow: There is mild subcortical marrow edema and cystic change in the lateral aspect of the humeral head. Joint fluid: There is a moderate joint effusion, moderate fluid in the subacromial/subdeltoid bursae, and mild to moderate fluid in the bicipital groove.. IMPRESSION: Moderate diffuse tendinopathy/tendinitis of the supraspinatus and infraspinatus tendons. Partial full-thickness tear supraspinatus tendon at 12 o'clock. Partial tear infraspinatus tendon. Mild tendinopathy/tendinitis subscapularis tendon. Moderate hypertrophic degenerative changes acromioclavicular joint, with a type 2 acromion. Biceps labral complex and proximal biceps tendon is torn. There is diffuse SLAP tear. Moderate joint effusion, moderate fluid in the subacromial/subdeltoid bursae. Mild subcortical marrow edema in the lateral humeral head. <Electronically signed by Kvng Aguilar > 10/07/20 [id number]
== END ==
LOC: M PLARAD 11:02
PROVIDERS: ATTEND Nurse Practitioner Family
DX: R93.7 Abnormal findings on diagnostic imaging of other parts of musculoskeletal system (principal); M25.511 Pain in right shoulder

== ENCOUNTER → 2020-12-27 | Outpatient (REF) | payer OTHER ==
[2020-12-27 16:56] LABS: BLOOD UREA NITROGEN 12 MG/DL (7-18); CALCIUM LEVEL 9.5 MG/DL (8.8-10.2); CARBON DIOXIDE LEVEL 28 MEQ/L (21-32); CHLORIDE LEVEL 97 MEQ/L (98-107); CREATININE FOR GFR 0.87 MG/DL (0.55-1.30); GLOMERULAR FILTRATION RATE > 60.0 (>45); GLUCOSE, FASTING 82 MG/DL (70-100); POTASSIUM SERUM 4.6 MEQ/L (3.5-5.1); SODIUM LEVEL 133 MEQ/L (136-145)
== END ==
LOC: M SFHCCLAY 13:28
PROVIDERS: ATTEND Family Medicine
DX: I11.9 Hypertensive heart disease without heart failure (principal)

== ENCOUNTER → 2021-02-24 | Outpatient (REF) | payer OTHER ==
[2021-02-24 11:34] LABS: BASO # 0.1 10^3/uL (0.0-0.2); BASO % 0.8 % (0.0-1.0); EOS # 0.2 10^3/uL (0.0-0.5); EOS % 3.9 % (0.0-3.0); HEMATOCRIT 38.3 % (36.0-47.0); HEMOGLOBIN 12.4 g/dl (12.0-15.5); LYMPH # 1.7 10^3/uL (1.5-5.0); LYMPH % 27.6 % (24.0-44.0); MEAN CORPUSCULAR HEMOGLOBIN 30.4 pg (27.0-33.0); MEAN CORPUSCULAR HGB CONC 32.4 g/dl (32.0-36.5); MEAN CORPUSCULAR VOLUME 93.9 fl (80.0-96.0); MONO # 0.8 10^3/uL (0.0-0.8); MONO % 12.2 % (2.0-8.0); NEUTROPHILS # 3.4 10^3/uL (1.5-8.5); NEUTROPHILS % 55.3 % (36.0-66.0); PLATELET COUNT, AUTOMATED 246 10^3/uL (150-450); RED BLOOD COUNT 4.08 10^6/uL (4.00-5.40); WHITE BLOOD COUNT 6.2 10^3/uL (4.0-10.0)
[2021-02-24 11:47] LABS: INR 1.04
[2021-02-24 11:48] LABS: PARTIAL THROMBOPLASTIN TIME 28.9 SECONDS (25.9-37.0)
[2021-02-24 11:59] LABS: BLOOD UREA NITROGEN 20 MG/DL (7-18); CALCIUM LEVEL 9.7 MG/DL (8.8-10.2); CARBON DIOXIDE LEVEL 36 MEQ/L (21-32); CHLORIDE LEVEL 92 MEQ/L (98-107); CREATININE FOR GFR 0.67 MG/DL (0.55-1.30); GLOMERULAR FILTRATION RATE > 60.0 (>45); GLUCOSE, FASTING 122 MG/DL (70-100); POTASSIUM SERUM 3.9 MEQ/L (3.5-5.1); SODIUM LEVEL 135 MEQ/L (136-145)
== END ==
LOC: M LABDRAWC 10:53
PROVIDERS: ATTEND Orthopaedic Surgery Orthopaedic Surgery of the Spine
DX: M43.22 Fusion of spine, cervical region (principal)

== ENCOUNTER → 2021-05-11 | Outpatient (REF) | payer MEDICARE, OTHER ==
[2021-05-12 12:11] LABS: BLOOD UREA NITROGEN 12 MG/DL (7-18); CALCIUM LEVEL 9.3 MG/DL (8.8-10.2); CARBON DIOXIDE LEVEL 32 MEQ/L (21-32); CHLORIDE LEVEL 103 MEQ/L (98-107); CREATININE FOR GFR 0.64 MG/DL (0.55-1.30); GLOMERULAR FILTRATION RATE > 60.0 (>45); GLUCOSE, FASTING 81 MG/DL (70-100); POTASSIUM SERUM 5.4 MEQ/L (3.5-5.1); SODIUM LEVEL 140 MEQ/L (136-145)
== END ==
LOC: M SFHCCLAY 14:09
PROVIDERS: ATTEND Family Medicine
DX: I11.9 Hypertensive heart disease without heart failure (principal)

== ENCOUNTER → 2021-05-15 | Outpatient (REF) | payer MEDICARE, OTHER ==
[2021-05-15 18:24] LABS: BLOOD UREA NITROGEN 21 MG/DL (7-18); CALCIUM LEVEL 9.1 MG/DL (8.8-10.2); CARBON DIOXIDE LEVEL 29 MEQ/L (21-32); CHLORIDE LEVEL 102 MEQ/L (98-107); CREATININE FOR GFR 0.85 MG/DL (0.55-1.30); GLOMERULAR FILTRATION RATE > 60.0 (>45); GLUCOSE, FASTING 75 MG/DL (70-100); POTASSIUM SERUM 4.3 MEQ/L (3.5-5.1); SODIUM LEVEL 137 MEQ/L (136-145)
== END ==
LOC: M SFHCCLAY 11:07
PROVIDERS: ATTEND Family Medicine
DX: E87.5 Hyperkalemia (principal)

== ENCOUNTER → 2021-10-05 | Outpatient (REF) | payer MEDICARE, OTHER ==
[2021-10-05 12:11] LABS: BASO # 0.1 10^3/uL (0.0-0.2); BASO % 1.1 % (0.0-1.0); EOS # 0.3 10^3/uL (0.0-0.5); EOS % 4.1 % (0.0-3.0); HEMATOCRIT 36.5 % (36.0-47.0); HEMOGLOBIN 11.7 g/dl (12.0-15.5); LYMPH # 2.1 10^3/uL (1.5-5.0); LYMPH % 33.4 % (24.0-44.0); MEAN CORPUSCULAR HEMOGLOBIN 28.7 pg (27.0-33.0); MEAN CORPUSCULAR HGB CONC 32.1 g/dl (32.0-36.5); MEAN CORPUSCULAR VOLUME 89.7 fl (80.0-96.0); NEUTROPHILS # 2.8 10^3/uL (1.5-8.5); NEUTROPHILS % 45.2 % (36.0-66.0); PLATELET COUNT, AUTOMATED 280 10^3/uL (150-450); RED BLOOD COUNT 4.07 10^6/uL (4.00-5.40); WHITE BLOOD COUNT 6.1 10^3/uL (4.0-10.0)
[2021-10-05 12:31] LABS: HEMOGLOBIN A1c 5.5 %
[2021-10-05 12:34] LABS: ALBUMIN 3.9 GM/DL (3.2-5.2); ALT/SGPT 34 U/L (12-78); BILIRUBIN,TOTAL 0.4 MG/DL (0.2-1.0); BLOOD UREA NITROGEN 15 MG/DL (7-18); CALCIUM LEVEL 9.3 MG/DL (8.8-10.2); CARBON DIOXIDE LEVEL 26 MEQ/L (21-32); CHLORIDE LEVEL 99 MEQ/L (98-107); CHOLESTEROL LEVEL 224 MG/DL (<200); CHOLESTEROL RISK RATIO 2.093 (<5); CREATININE FOR GFR 0.67 MG/DL (0.55-1.30); GLOMERULAR FILTRATION RATE > 60.0 (>45); GLUCOSE, FASTING 104 MG/DL (70-100); HDL CHOLESTEROL 107 MG/DL (>40); IRON (FE) 27 UG/DL (50-170); LDL CHOLESTEROL 103 MG/DL (<100); MAGNESIUM LEVEL 2.1 MG/DL (1.8-2.4); NON-HDL-C 117 MG/DL; POTASSIUM SERUM 4.7 MEQ/L (3.5-5.1); SODIUM LEVEL 133 MEQ/L (136-145); TOTAL PROTEIN 7.1 GM/DL (6.4-8.2); TRIGLYCERIDES LEVEL 69 MG/DL (<150)
[2021-10-05 12:54] LABS: FOLATE > 24.0 NG/ML (>5.4); VITAMIN B12 LEVEL > 2000 PG/ML (247-911)
== END ==
LOC: M SFHCCLAY 08:43
PROVIDERS: ATTEND Family Medicine
DX: I10 Essential (primary) hypertension (principal); E78.2 Mixed hyperlipidemia; Z98.84 Bariatric surgery status; Z79.899 Other long term (current) drug therapy

== ENCOUNTER → 2021-12-14 | Outpatient (CLI) | payer MEDICARE | LOC: M WHC 10:46 | PROVIDERS: ATTEND Obstetrics & Gynecology | DX: Z12.31 Encounter for screening mammogram for malignant neoplasm of breast (principal) ==

== ENCOUNTER 2022-02-02 14:43 | Emergency (ER) | payer MEDICARE, OTHER ==
[~2022-02-02] VITALS: Ht 160 cm; Wt 75.0 kg
[2022-02-02] MEDS ORDERED: LEXA1TAB2 PO (15:25)
[2022-02-02] MEDS ORDERED: BUDE10.2 INH (15:25)
[2022-02-02] MEDS ORDERED: ALPR0.5T3 PO ×2 (15:25→20:44)
[2022-02-02] MEDS ORDERED: HYDR12CA PO (15:25)
[2022-02-02] MEDS ORDERED: LANS15CA3 PO (15:25)
[2022-02-02] MEDS ORDERED: VITA100093 PO (15:25)
[2022-02-02] MEDS ORDERED: VITA100024 PO (15:25)
[2022-02-02] MEDS ORDERED: GABA600T4 PO (15:25)
[2022-02-02] MEDS ORDERED: SUPE5000 PO (15:25)
[2022-02-02] MEDS ORDERED: METH-1164 PO (15:25)
[2022-02-02] MEDS ORDERED: FERR325T82 PO (15:25)
[2022-02-02] MEDS ORDERED: HYDR-3713 PO (15:25)
[2022-02-02] MEDS ORDERED: LOSA50TA28 PO (15:25)
[2022-02-02] MEDS ORDERED: CYAN100050 PO (15:25)
[2022-02-02 16:00] LABS: HEMATOCRIT 37.7 % (36.0-47.0); HEMOGLOBIN 12.3 g/dl (12.0-15.5); MEAN CORPUSCULAR HGB CONC 32.6 g/dl (32.0-36.5); MEAN CORPUSCULAR VOLUME 98.2 fl (80.0-96.0); PLATELET COUNT, AUTOMATED 206 10^3/uL (150-450); RED BLOOD COUNT 3.84 10^6/uL (4.00-5.40)
[2022-02-02 16:34] LABS: RSV AMPLIFICATION NEGATIVE (NEGATIVE)
[2022-02-02 16:54] LABS: AMPHETAMINES LEVEL URINE NEGATIVE (NEGATIVE); BARBITURATES URINE NEGATIVE (NEGATIVE); BENZODIAZEPINES URINE NEGATIVE (NEGATIVE); CANNABINOIDS URINE NEGATIVE (NEGATIVE); COCAINE METABOLITE URINE NEGATIVE (NEGATIVE); METHADONE URINE NEGATIVE (NEGATIVE); OPIATES URINE NEGATIVE (NEGATIVE); PHENCYCLIDINE URINE NEGATIVE (NEGATIVE)
[2022-02-02 16:58] LABS: ACETAMINOPHEN LEVEL < 2.0 UG/ML (10.0-20.0); ALBUMIN 3.8 G/DL (3.2-5.2); ALT/SGPT 46 U/L (7.0-40); BILIRUBIN,DIRECT < 0.1 MG/DL (<0.4); BILIRUBIN,TOTAL 0.2 MG/DL (0.3-1.2); BLOOD UREA NITROGEN 18 MG/DL (9-23); CARBON DIOXIDE LEVEL 27 MMOL/L (20-31); CHLORIDE LEVEL 97 MMOL/L (98-107); CREATININE FOR GFR 0.58 MG/DL (0.55-1.30); ETHYL ALCOHOL (ETHANOL) 0.201 % (0.000-0.010); GLOMERULAR FILTRATION RATE > 60.0 (>45); GLUCOSE, FASTING 59 MG/DL (74-106); POTASSIUM SERUM 3.9 MMOL/L (3.5-5.1); SODIUM LEVEL 133 MMOL/L (136-145); THYROID STIMULATING HORMONE 1.121 uIU/ML (0.55-4.78); TOTAL PROTEIN 6.1 G/DL (5.7-8.2)
[2022-02-02 17:00] LABS: SALICYLATE LEVEL < 3.0 MG/DL (<30)
[2022-02-02] MEDS: methocarbamoL 500 MG TAB PO SCH (21:00)
[2022-02-02] MEDS ORDERED: B-1100TA2 PO (21:22)
[2022-02-02] MEDS ORDERED: IBUP200C25 PO (21:22)
[2022-02-02] MEDS ORDERED: BENA25CA4 PO (21:22)
[2022-02-02] MEDS ORDERED: CALCCAP4 PO (21:22)
[2022-02-02] MEDS ORDERED: RA M10TA PO (21:23)
[2022-02-02] MEDS ORDERED: HOME MED LIST COMPLETE! XX SCH (21:25)
[2022-02-03] MEDS: GABAPENTIN 300 MG CAP PO SCH ×5 (00:11→21:51)
[2022-02-03] MEDS: ALPRAZolam 0.5 MG TAB PO SCH ×4 (00:12→21:51)
[2022-02-03] MEDS: SYMBICORT 160/4.5MCG INHALER 6GM INH SCH ×2 (08:00→22:35)
[2022-02-03] MEDS: methocarbamoL 500 MG TAB PO SCH ×4 (09:00→21:51)
[2022-02-03] MEDS: LOSARTAN 50MG TABLET PO SCH (10:19)
[2022-02-03] MEDS: FERROUS SULFATE 325MG TAB PO SCH (10:20)
[2022-02-03] MEDS: VITAMIN D 1,000 INTERNATIONAL UNITS TABLET PO SCH (10:20)
[2022-02-03] MEDS: ESCITALOPRAM OXALATE 10 MG TAB (LEXAPRO) PO SCH (10:20)
[2022-02-03] MEDS: hydroCHLOROthiazide 12.5 MG CAPSULE PO SCH (10:22)
[2022-02-03] MEDS: ASCORBIC ACID 500 MG TAB PO SCH (10:22)
[2022-02-03] MEDS: CYANOCOBALAMIN 500 MCG TAB PO SCH (10:23)
[2022-02-04] MEDS: SYMBICORT 160/4.5MCG INHALER 6GM INH SCH (08:00)
[2022-02-04] MEDS: methocarbamoL 500 MG TAB PO SCH ×2 (08:31→13:54)
[2022-02-04] MEDS: ASCORBIC ACID 500 MG TAB PO SCH (08:32)
[2022-02-04] MEDS: CYANOCOBALAMIN 500 MCG TAB PO SCH (08:33)
[2022-02-04] MEDS: ALPRAZolam 0.5 MG TAB PO SCH ×2 (08:33→16:07)
[2022-02-04] MEDS: GABAPENTIN 300 MG CAP PO SCH ×2 (08:33→13:55)
[2022-02-04] MEDS: ESCITALOPRAM OXALATE 10 MG TAB (LEXAPRO) PO SCH (08:34)
[2022-02-04] MEDS: FERROUS SULFATE 325MG TAB PO SCH (08:34)
[2022-02-04] MEDS: VITAMIN D 1,000 INTERNATIONAL UNITS TABLET PO SCH (08:34)
[2022-02-04] MEDS: hydroCHLOROthiazide 12.5 MG CAPSULE PO SCH (08:36)
[2022-02-04 08:37] VITALS: BP 130/78
[2022-02-04] MEDS: LOSARTAN 50MG TABLET PO SCH (08:37)
[2022-02-04 15:19] LABS: RSV AMPLIFICATION NEGATIVE (NEGATIVE)
[2022-02-04 16:08] VITALS: BP 120/64
== END 2022-02-04 16:40 | disposition home or self-care (01) ==
LOC: M ED 14:43
DX: F32.A Depression, unspecified (principal); Z91.040 Latex allergy status; Z79.899 Other long term (current) drug therapy

== ENCOUNTER → 2022-05-16 | Outpatient (REF) | payer MEDICARE, OTHER ==
[~2022-05-16] MED LIST changes: +ALPR0.5T3 PO; +B-1100TA2 PO; +BENA25CA4 PO; +BUDE10.2 INH; +CALCCAP4 PO; +CYAN100050 PO; +FERR325T82 PO; +GABA600T4 PO; +HYDR-3713 PO; +HYDR12CA PO; +IBUP200C25 PO; +LANS15CA3 PO; +LEXA1TAB2 PO; +LOSA50TA28 PO; +METH-1164 PO; +RA M10TA PO; +SUPE5000 PO; +VITA100024 PO; +VITA100093 PO
== END ==
LOC: M LAB REF 13:33
PROVIDERS: ATTEND Ophthalmology
DX: D23.122 Other benign neoplasm of skin of left lower eyelid, including canthus (principal)

== ENCOUNTER 2022-07-25 07:39 | Day surgery (SDC) | payer MEDICARE, OTHER ==
[~2022-07-25] VITALS: Ht 160 cm; Wt 71.2 kg
[~2022-07-25 07:39] MED LIST changes: +BSS IRRIG/VANCO(10MG)/TOBRA(5MG)/EPINEPH(1:1000-0.5CC)500ML BAG-ORONLY IR ONE; +CEFUROXIME 1MG/0.1ML INTRACAMERAL INJ As Ordered ONE; +CYCLOPENTOLATE 1% OPHTH SOLN 2ML BTL OS SCH; +DULO1CAP5 PO; +LIDOCAINE 1% SDV 5ML VIAL As Ordered ONE; +LIDOCAINE 3.5 % 1ML OPHTH TOPICAL GEL OU ONE; +OFLOXACIN 0.3 % (OCUFLOX) OPTH SOL 5ML OS ONE; +PHENYLEPHRINE 10% OPHTH SOL 5ML OS PRN; +PHENYLEPHRINE 2.5% OPHTH SOL 2ML OS SCH; +PRES1CAP PO; +TROPICAMIDE 1% OPHTH SOLN 15ML OS SCH
[2022-07-25] MEDS ORDERED: MIDAZOLAM INJ 2MG/2ML VIAL As Ordered ONE (08:46)
[2022-07-25] MEDS ORDERED: fentaNYL 100 MCG/2 ML INJECTION As Ordered ONE (08:46)
[2022-07-25 11:00] VITALS: BP 117/65
== END 2022-07-25 13:28 | disposition home or self-care (01) ==
LOC: M SDC 07:39
PROVIDERS: ATTEND Ophthalmology
DX: H25.12 Age-related nuclear cataract, left eye (principal); I10 Essential (primary) hypertension; G47.30 Sleep apnea, unspecified; Z98.84 Bariatric surgery status; Z79.899 Other long term (current) drug therapy
CPT/HCPCS: 66984; J0697; J2250; J3010; V2632

== ENCOUNTER 2022-08-01 05:59 | Day surgery (SDC) | payer MEDICARE, OTHER ==
[~2022-08-01] VITALS: Ht 160 cm; Wt 71.1 kg
[~2022-08-01 05:59] MED LIST changes: -BSS IRRIG/VANCO(10MG)/TOBRA(5MG)/EPINEPH(1:1000-0.5CC)500ML BAG-ORONLY IR ONE; -CEFUROXIME 1MG/0.1ML INTRACAMERAL INJ As Ordered ONE; -CYCLOPENTOLATE 1% OPHTH SOLN 2ML BTL OS SCH; -LIDOCAINE 1% SDV 5ML VIAL As Ordered ONE; -LIDOCAINE 3.5 % 1ML OPHTH TOPICAL GEL OU ONE; -OFLOXACIN 0.3 % (OCUFLOX) OPTH SOL 5ML OS ONE; -PHENYLEPHRINE 10% OPHTH SOL 5ML OS PRN; -PHENYLEPHRINE 2.5% OPHTH SOL 2ML OS SCH; -TROPICAMIDE 1% OPHTH SOLN 15ML OS SCH
[2022-08-01] MEDS ORDERED: BSS IRRIG/VANCO(10MG)/TOBRA(5MG)/EPINEPH(1:1000-0.5CC)500ML BAG-ORONLY IR ONE (06:00)
[2022-08-01] MEDS ORDERED: CYCLOPENTOLATE 1% OPHTH SOLN 2ML BTL OD SCH (06:00)
[2022-08-01] MEDS ORDERED: PHENYLEPHRINE 2.5% OPHTH SOL 2ML OD SCH (06:00)
[2022-08-01] MEDS ORDERED: PHENYLEPHRINE 10% OPHTH SOL 5ML OD PRN (06:00)
[2022-08-01] MEDS ORDERED: OFLOXACIN 0.3 % (OCUFLOX) OPTH SOL 5ML OD ONE (06:00)
[2022-08-01] MEDS ORDERED: LIDOCAINE 3.5 % 1ML OPHTH TOPICAL GEL OU ONE (06:00)
[2022-08-01] MEDS ORDERED: TROPICAMIDE 1% OPHTH SOLN 15ML OD SCH (06:00)
[2022-08-01] MEDS ORDERED: LR 1,000 ML IV SCH (06:20)
[2022-08-01] MEDS ORDERED: LIDOCAINE 1% SDV 5ML VIAL As Ordered ONE (06:48)
[2022-08-01] MEDS ORDERED: CEFUROXIME 1MG/0.1ML INTRACAMERAL INJ As Ordered ONE (06:49)
[2022-08-01] MEDS ORDERED: MIDAZOLAM INJ 2MG/2ML VIAL As Ordered ONE (08:00)
[2022-08-01] MEDS ORDERED: fentaNYL 100 MCG/2 ML INJECTION As Ordered ONE (08:00)
[2022-08-01 09:04] VITALS: BP 125/74
== END 2022-08-01 12:13 | disposition home or self-care (01) ==
LOC: M SDC 05:59
PROVIDERS: ATTEND Ophthalmology
DX: H25.11 Age-related nuclear cataract, right eye (principal); I10 Essential (primary) hypertension; K21.9 Gastro-esophageal reflux disease without esophagitis; M19.90 Unspecified osteoarthritis, unspecified site; F41.9 Anxiety disorder, unspecified; F32.A Depression, unspecified; G47.33 Obstructive sleep apnea (adult) (pediatric); Z79.899 Other long term (current) drug therapy; Z98.84 Bariatric surgery status
CPT/HCPCS: 66984; J0697; J2250; J3010; V2632

== ENCOUNTER → 2022-10-26 | Outpatient (REF) | payer MEDICARE, OTHER ==
[~2022-10-26] MED LIST changes: +CYAN-1 PO; -CYAN100050 PO
[2022-10-26 11:48] LABS: HEMATOCRIT 37.6 % (36.0-47.0); HEMOGLOBIN 12.5 g/dl (12.0-15.5); MEAN CORPUSCULAR HEMOGLOBIN 32.2 pg (27.0-33.0); MEAN CORPUSCULAR HGB CONC 33.2 g/dl (32.0-36.5); MEAN CORPUSCULAR VOLUME 96.9 fl (80.0-96.0); PLATELET COUNT, AUTOMATED 250 10^3/uL (150-450); RED BLOOD COUNT 3.88 10^6/uL (4.00-5.40); WHITE BLOOD COUNT 4.3 10^3/uL (4.0-10.0)
[2022-10-26 12:12] LABS: ALBUMIN 3.9 G/DL (3.2-5.2); ALKALINE PHOSPHATASE 122 U/L (46-116); ALT/SGPT 52 U/L (7.0-40); AST/SGOT 31 U/L (<34); BILIRUBIN,TOTAL 0.5 MG/DL (0.3-1.2); BLOOD UREA NITROGEN 12 MG/DL (9-23); CARBON DIOXIDE LEVEL 27 MMOL/L (20-31); CHLORIDE LEVEL 98 MMOL/L (98-107); CHOLESTEROL LEVEL 195 MG/DL (<200); CHOLESTEROL RISK RATIO 2.44 (<5); CREATININE FOR GFR 0.51 MG/DL (0.55-1.30); GLOMERULAR FILTRATION RATE > 60.0 (>45); GLUCOSE, FASTING 94 MG/DL (74-106); HDL CHOLESTEROL 79.8 MG/DL (>40); IRON (FE) 91 UG/DL (50-170); LDL CHOLESTEROL 102.2 MG/DL (<100); MAGNESIUM LEVEL 2.2 MG/DL (1.8-2.4); NON-HDL-C 115.2 MG/DL; POTASSIUM SERUM 4.6 MMOL/L (3.5-5.1); SODIUM LEVEL 131 MMOL/L (136-145); TOTAL PROTEIN 6.4 G/DL (5.7-8.2); TRIGLYCERIDES LEVEL 65 MG/DL (<150)
[2022-10-26 12:14] LABS: FOLATE > 24.00 NG/ML (>5.4); THYROID STIMULATING HORMONE 2.252 uIU/ML (0.55-4.78); VITAMIN B12 LEVEL 1939 PG/ML (211-911)
[2022-10-26 12:17] LABS: HEMOGLOBIN A1c 5.9 % (4.0-6.0)
== END ==
LOC: M SFHCCLAY 09:14
PROVIDERS: ATTEND Family Medicine
DX: E78.2 Mixed hyperlipidemia (principal); I10 Essential (primary) hypertension; Z98.84 Bariatric surgery status; Z79.899 Other long term (current) drug therapy

== ENCOUNTER → 2023-01-23 | Outpatient (CLI) | payer MEDICARE, OTHER ==
[~2023-01-23] MED LIST changes: +E-Z-GAS II EFFERVESCENT PACKET (SODIUM BICARB./CITRIC ACID/SIMETHICONE) As Ordered ONE; +E-Z-HD 98% w/w 340GM SUSP BTL As Ordered ONE; +E-Z-PAQUE 96% w/w SUSP 176GM BTL As Ordered ONE
== END ==
LOC: M RAD 09:47
PROVIDERS: ATTEND Family Medicine
DX: K21.9 Gastro-esophageal reflux disease without esophagitis (principal); Z98.84 Bariatric surgery status

== ENCOUNTER → 2023-10-23 | Outpatient (CLI) | payer MEDICARE, MEDICAID ==
[~2023-10-23] MED LIST changes: -E-Z-GAS II EFFERVESCENT PACKET (SODIUM BICARB./CITRIC ACID/SIMETHICONE) As Ordered ONE; -E-Z-HD 98% w/w 340GM SUSP BTL As Ordered ONE; -E-Z-PAQUE 96% w/w SUSP 176GM BTL As Ordered ONE
== END ==
LOC: M PLAIMG 09:01
PROVIDERS: ATTEND Pain Medicine Interventional Pain Medicine
DX: M54.16 Radiculopathy, lumbar region (principal); M51.86 Other intervertebral disc disorders, lumbar region

== ENCOUNTER → 2023-11-15 | Outpatient (REF) | payer MEDICARE ==
[~2023-11-15] MED LIST changes: +GABA-1490 PO; -GABA600T4 PO
[2023-11-15 18:15] LABS: IRON (FE) 94 UG/DL (50-170)
[2023-11-15 18:16] LABS: ALKALINE PHOSPHATASE 92 U/L (46-116); ALT/SGPT 32 U/L (7.0-40); AST/SGOT 27 U/L (<34); BILIRUBIN,TOTAL 0.5 MG/DL (0.3-1.2); BLOOD UREA NITROGEN 11 MG/DL (9-23); CALCIUM LEVEL 9.3 MG/DL (8.3-10.6); CARBON DIOXIDE LEVEL 29 MMOL/L (20-31); CHLORIDE LEVEL 98 MMOL/L (98-107); CREATININE FOR GFR 0.52 MG/DL (0.55-1.30); GLOMERULAR FILTRATION RATE > 60.0 (>45); GLUCOSE, FASTING 101 MG/DL (74-106); MAGNESIUM LEVEL 2.1 MG/DL (1.8-2.4); POTASSIUM SERUM 4.5 MMOL/L (3.5-5.1); SODIUM LEVEL 129 MMOL/L (136-145); TOTAL PROTEIN 6.7 G/DL (5.7-8.2)
[2023-11-15 18:17] LABS: FOLATE > 24.00 NG/ML (>5.4); HEMATOCRIT 36.5 % (36.0-47.0); HEMOGLOBIN 12.4 g/dl (12.0-15.5); MEAN CORPUSCULAR HEMOGLOBIN 33.2 pg (27.0-33.0); MEAN CORPUSCULAR VOLUME 97.9 fl (80.0-96.0); PLATELET COUNT, AUTOMATED 244 10^3/uL (150-450); RED BLOOD COUNT 3.73 10^6/uL (4.00-5.40); THYROID STIMULATING HORMONE 2.314 uIU/ML (0.55-4.78); WHITE BLOOD COUNT 4.5 10^3/uL (4.0-10.0)
[2023-11-15 18:20] LABS: VITAMIN B12 LEVEL > 2000 PG/ML (211-911)
[2023-11-15 19:09] LABS: HEMOGLOBIN A1c 5.3 % (4.0-6.0)
== END ==
LOC: M SFHCCLAY 09:59
PROVIDERS: ATTEND Family Medicine
DX: I10 Essential (primary) hypertension (principal); E78.2 Mixed hyperlipidemia; Z98.84 Bariatric surgery status; K21.9 Gastro-esophageal reflux disease without esophagitis; F41.1 Generalized anxiety disorder; M15.9 Polyosteoarthritis, unspecified; J45.909 Unspecified asthma, uncomplicated; I27.20 Pulmonary hypertension, unspecified; Z79.899 Other long term (current) drug therapy; Z13.21 Encounter for screening for nutritional disorder

== ENCOUNTER → 2023-12-10 | Outpatient (REF) | payer MEDICARE ==
[2023-12-10 18:00] LABS: ALBUMIN 3.8 G/DL (3.2-5.2); ALKALINE PHOSPHATASE 91 U/L (46-116); ALT/SGPT 37 U/L (7.0-40); AST/SGOT 29 U/L (<34); BILIRUBIN,TOTAL 0.4 MG/DL (0.3-1.2); BLOOD UREA NITROGEN 11 MG/DL (9-23); CALCIUM LEVEL 8.7 MG/DL (8.3-10.6); CARBON DIOXIDE LEVEL 29 MMOL/L (20-31); CHLORIDE LEVEL 99 MMOL/L (98-107); CREATININE FOR GFR 0.49 MG/DL (0.55-1.30); GLOMERULAR FILTRATION RATE > 60.0 (>45); GLUCOSE, FASTING 98 MG/DL (74-106); POTASSIUM SERUM 4.8 MMOL/L (3.5-5.1); SODIUM LEVEL 130 MMOL/L (136-145); TOTAL PROTEIN 6.4 G/DL (5.7-8.2)
== END ==
LOC: M SFHCCLAY 10:37
PROVIDERS: ATTEND Family Medicine
DX: E87.1 Hypo-osmolality and hyponatremia (principal)

== ENCOUNTER → 2024-02-21 | Outpatient (REF) | payer MEDICARE, MEDICAID ==
[2024-02-21 18:20] LABS: ALBUMIN 3.9 G/DL (3.2-5.2); ALKALINE PHOSPHATASE 103 U/L (35-104); ALT/SGPT 32 U/L (7.0-40); AST/SGOT 27 U/L (<34); BILIRUBIN,TOTAL 0.3 MG/DL (0.3-1.2); BLOOD UREA NITROGEN 9 MG/DL (9-23); CALCIUM LEVEL 9.9 MG/DL (8.3-10.6); CARBON DIOXIDE LEVEL 28 MMOL/L (20-31); CHLORIDE LEVEL 96 MMOL/L (98-107); CHOLESTEROL LEVEL 215 MG/DL (<200); CHOLESTEROL RISK RATIO 2.32 (<5); CREATININE FOR GFR 0.47 MG/DL (0.55-1.30); GLOMERULAR FILTRATION RATE > 60.0 (>45); GLUCOSE, FASTING 81 MG/DL (74-106); HDL CHOLESTEROL 92.5 MG/DL (>40); LDL CHOLESTEROL 109.7 MG/DL (<100); NON-HDL-C 122.5 MG/DL; POTASSIUM SERUM 4.7 MMOL/L (3.5-5.1); SODIUM LEVEL 131 MMOL/L (136-145); TRIGLYCERIDES LEVEL 64 MG/DL (<150)
== END ==
LOC: M SFHCCLAY 14:12
PROVIDERS: ATTEND Family Medicine
DX: I10 Essential (primary) hypertension (principal); E78.2 Mixed hyperlipidemia